=== PATIENT | female | born 1975 | race Caucasian/White ===

== ENCOUNTER → 2020-11-21 | Outpatient (CLI) | payer MEDICAID ==
[2020-11-21 11:25] LABS: Basophils # (A) 0.04 X 10*3/uL (0.00-0.10); Basophils % (A) 0.4 %; Eosinophils # (A) 0.09 X 10*3/uL (0.04-0.35); Eosinophils % (A) 0.8 %; HCT 38.6 % (37.2-46.3); HGB 13.2 g/dL (12.0-15.0); Lymphocytes # (A) 3.92 X 10*3/uL (0.90-5.00); Lymphocytes % (A) 35.8 %; MCH 31.2 pg (27.0-32.0); MCHC 34.2 g/dL (32.0-37.0); MCV 91.3 fL (80.0-97.0); Mean Platelet Volume 10.7 fL (9.5-12.2); Monocytes # (A) 0.79 X 10*3/uL (0.20-1.00); Monocytes % (A) 7.2 %; Neutrophils # (A) 6.07 X 10*3/uL (1.80-7.70); Neutrophils % (A) 55.3 %; Platelet Count 247 X 10*3/uL (140-440); RBC 4.23 X 10*6/uL (4.10-5.20); WBC 10.96 X 10*3/uL (4.50-10.00)
[2020-11-21 14:07] LABS: Chol/HDL Ratio 3.39; LDL Cholesterol,Calculated 126.4 mg/dL (0.0-131.0); VLDL Calculation 31.6 mg/dL (5.00-40.00)
[2020-11-21 14:14] LABS: T4, Free (Free Thyroxine) 1.2 ng/dL (0.80-1.80)
[2020-11-21 15:36] LABS: Follicle Stimulating Hormone 1.5 mIU/mL
== END | disposition home or self-care (01) ==
LOC: LABWHC1 07:05
PROVIDERS: ATTEND Obstetrics & Gynecology
DX: E78.2 Mixed hyperlipidemia (principal); D72.829 Elevated white blood cell count, unspecified; R58 Hemorrhage, not elsewhere classified
CPT/HCPCS: 36415; 80061; 83001; 84439; 84443; 85025

== ENCOUNTER → 2021-04-23 | Outpatient (CLI) | payer MEDICAID ==
[2021-04-23 16:27] LABS: Basophils # (A) 0.1 k/uL (0-0.2); Basophils % (A) 1 %; Eosinophils # (A) 0.1 k/uL (0-0.7); Eosinophils % (A) 1 %; HCT 36.4 % (34.0-46.0); HGB 14.5 gm/dL (11.4-16.0); Lymphocytes # (A) 4.9 k/uL (1.0-4.8); Lymphocytes % (A) 34 %; MCH 36.3 pg (25.0-35.0); Mean Platelet Volume 7.2; Monocytes # (A) 0.6 k/uL (0-1.0); Monocytes % (A) 4 %; Neutrophils # (A) 8.5 k/uL (1.3-7.7); Neutrophils % (A) 58 %; Platelet Count 328 k/uL (150-450); RDW 13.1 % (11.5-15.5); WBC 14.6 k/uL (3.8-10.6)
[2021-04-23 16:35] LABS: MCHC 39.8 g/dL (31.0-37.0)
== END | disposition home or self-care (01) ==
LOC: LABPAT 15:41
PROVIDERS: ATTEND Obstetrics & Gynecology
DX: Z01.818 Encounter for other preprocedural examination (principal); I10 Essential (primary) hypertension; N92.0 Excessive and frequent menstruation with regular cycle
CPT/HCPCS: 36415; 85025; 93005

== ENCOUNTER 2021-05-19 09:17 | Day surgery (SDC) | payer MEDICAID ==
[2021-05-12 11:28] VITALS: BMI 40.2
[~2021-05-19 09:17] MED LIST: DEXAMETHASONE SOD PHOSPHATE 4 MG/ML 1 ML VIAL IV ONE; HYDROmorphone 0.5 MG/0.5 ML SYRINGE IVP PRN; LACTATED RINGERS 1,000 ML IV SCH; LIDOCAINE 1% (10MG/ML) FOR IV START INTRADERMA PRN; ONDANSETRON 4 MG/2 ML VIAL IVP ONE; Pre Op ABX Message 1 EACH MISC MISCELLANE ONE; SCOPOLAMINE 1.5MG/72HR PATCH TRANSDERM ONE
[2021-05-19 09:31] VITALS: RESP 16
[2021-05-19] MEDS ORDERED: PROPOFOL 10 MG/ML 20 ML VIAL IV ONE (09:47)
[2021-05-19] MEDS ORDERED: MIDAZOLAM 2 MG/2 ML VIAL ONE (09:47)
[2021-05-19] MEDS ORDERED: fentaNYL (PF) 50 MCG/ML 2 ML AMP ONE (09:47)
[2021-05-19] MEDS ORDERED: LIDOCAINE 1% INJ 10MG/ML (20 ML MDV) ONE (09:47)
[2021-05-19] MEDS ORDERED: SUCCINYLCHOLINE CHLORIDE 100 MG/5 ML SYR IV ONE (09:47)
[2021-05-19] MEDS ORDERED: KETOROLAC 15 MG/ML 1 ML VIAL ONE (09:47)
--- NOTE | 2021-05-19 10:30 | P.OP ---
Date of Procedure: 05/19/21 Preoperative Diagnosis: Hypermenorrhea Postoperative Diagnosis: Same, normal-appearing endometrial cavity Procedure(s) Performed: Hysteroscopy, Thania endometrial ablation Anesthesia: CYRUSA Surgeon: Emilie Nugent Estimated Blood Loss (ml): 5 IV fluids (ml): 400 Urine output (ml): 20 Pathology: none sent Condition: stable Disposition: PACU Operative Findings: Essentially normal-appearing endometrial cavity Description of Procedure: Patient is brought to the operating suite and placed in the dorsal lithotomy position after general anesthetic is administered by the team without difficulty. The cervix, vagina, perineal bodies are all prepped and draped in usual sterile fashion. The appropriate timeout is performed to assure proper patient and procedural identification, urine hCG is negative. Examination under anesthesia reveals a small anteverted uterus, negative adnexa bilaterally. Bladder is drained for approximately 20 mL of clear yellow urine. Weighted speculum was placed into the vagina. Anterior lip of the cervix is grasped with a double-tooth tenaculum. Cervical length is 3 cm, endometrial sound to 9 cm. Cervix is gently and systematically dilated using Hanks dilators. Hysteroscope was introduced and the cavity is distended with sterile saline. Inspection of the cavity reveals a proliferative-type appearing tissue, no fibroids, polyps, defects, septa. Hysteroscope was removed. The Thania wand is then placed into the cavity and the cervical balloon is blown up. The machine is enabled us to proceed. The foot pedal was then tapped and 420 seconds the procedure is carried out. When the machine turns off the wand is reduced and removed. Hysteroscope is then placed, cavity is noted to be uniformly blanched. All instrumentation is removed from the vagina. Cervix is clean and dry. Toradol is given. Patient is brought back to the recovery room in very good condition with stable vital signs including blood pressure 137/79, pulse 61, 97% O2 saturation. All instrument and sponge counts are correct. Patient will follow-up with me in the office in 2 weeks. Postoperative instructions are reviewed proper patient and family members.
[2021-05-19 10:51] VITALS: TEMP 97.7
[2021-05-19] MEDS ORDERED: LACTATED RINGERS 1,000 ML IV ONE ×2 (10:57)
[2021-05-19 12:04] VITALS: BP 131/83; PULSE 72
[2021-05-19] MEDS ORDERED: ACETAMINOPHEN TAB 500 MG TAB ONE (12:18)
[2021-05-19] MEDS ORDERED: ACETAMINOPHEN TAB 500 MG TAB PO ONE (12:25)
== END 2021-05-19 12:41 | disposition home or self-care (01) ==
LOC: OR 09:17
PROVIDERS: ATTEND Obstetrics & Gynecology
DX: N92.0 Excessive and frequent menstruation with regular cycle (principal); I10 Essential (primary) hypertension; J45.909 Unspecified asthma, uncomplicated; G47.33 Obstructive sleep apnea (adult) (pediatric); G43.909 Migraine, unspecified, not intractable, without status migrainosus; F41.9 Anxiety disorder, unspecified; F32.A Depression, unspecified; K21.9 Gastro-esophageal reflux disease without esophagitis; R56.9 Unspecified convulsions; J98.4 Other disorders of lung; Z79.1 Long term (current) use of non-steroidal anti-inflammatories (NSAID); Z79.899 Other long term (current) drug therapy; Z88.1 Allergy status to other antibiotic agents; Z98.890 Other specified postprocedural states; Z80.3 Family history of malignant neoplasm of breast; Z80.49 Family history of malignant neoplasm of other genital organs
CPT/HCPCS: 81025; 58563; J2250; J1100; J2405; J2001; J3010; J1885; J0330; J2704; J1170; J1790

== ENCOUNTER 2023-03-22 18:30 | Emergency (ER) | payer MEDICAID ==
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
[2023-03-22 18:51] VITALS: RESP 18; TEMP 98.5
[2023-03-22] MEDS ORDERED: HYDROmorphone 1 MG/ML 1 ML SYRINGE IM STA (19:06)
[2023-03-22] MEDS ORDERED: KETOROLAC 15 MG/ML 1 ML VIAL IM STA (19:06)
[2023-03-22] MEDS ORDERED: ACET/COD 300 MG/30 MG STARTER PACK 6 TAB BTL PO STA (21:02)
--- NOTE | 2023-03-22 21:55 | XR ---
EXAMINATION TYPE: XR ankle complete RT DATE OF EXAM: 03/22/2023 6:58 PM CLINICAL INDICATION:Female, 47 years old with history of pain; [facility] COMPARISON: None TECHNIQUE: The right ankle is imaged in frontal, lateral and oblique projections. FINDINGS: Soft tissue swelling suggested about the ankle. Small bony densities suggested along the tips of the medial and lateral malleoli, appearance favors chronic. Ankle mortise is preserved. Talar dome appear s intact. Mild/moderate degenerative changes at the ankle joint. Small dorsal calcaneal spur. No defi nite acute fracture lucency or malalignment. IMPRESSION: Degenerative changes of the ankle, with small bony densities suggested at the lateral and medial mall eoli, likely chronic. Correlate for any point tenderness. Soft tissue swelling about the ankle.
--- NOTE | 2023-03-22 21:56 | XR ---
EXAMINATION TYPE: XR knee complete RT DATE OF EXAM: 03/22/2023 6:58 PM CLINICAL INDICATION:Female, 47 years old with history of pain; [facility] COMPARISON: None. TECHNIQUE: XR knee complete RT; examined in Frontal, lateral and oblique projections. FINDINGS: Osseous mineralization appears appropriate. There is mild/moderate tricompartment osteoarth ropathy, greatest in the medial and patellofemoral compartments. No acute fracture or dislocation is seen. No significant joint effusion suggested. IMPRESSION: 1. No acute fracture or dislocation. 2. Mild/moderate tricompartmental osteoarthritic changes.
[2023-03-22 22:38] VITALS: BP 121/78; PULSE 78
== END 2023-03-22 22:03 | disposition home or self-care (01) ==
LOC: EC 18:30
DX: S83.91XA Sprain of unspecified site of right knee, initial encounter (principal); S93.401A Sprain of unspecified ligament of right ankle, initial encounter; J45.909 Unspecified asthma, uncomplicated; I10 Essential (primary) hypertension; M06.9 Rheumatoid arthritis, unspecified; M17.11 Unilateral primary osteoarthritis, right knee; Z88.1 Allergy status to other antibiotic agents; Z79.899 Other long term (current) drug therapy; W01.0XXA Fall on same level from slipping, tripping and stumbling without subsequent striking against object, initial encounter
CPT/HCPCS: 73562; 73610; 99284; 96372 ×2; L4350; L1830; J1170; J1885

== ENCOUNTER → 2023-04-01 | Outpatient (CLI) | payer MEDICAID ==
--- NOTE | 2023-04-01 12:24 | MR ---
EXAMINATION TYPE: MR knee RT wo con DATE OF EXAM: 04/01/2023 COMPARISON: None HISTORY: Rt knee cap pain and swelling - pt fell on cement floor directly on her knee cap a week ago TECHNIQUE: Multiplanar, multisequence imaging of the right knee is performed without IV contrast. FINDINGS: MEDIAL MENISCUS: Anterior and posterior horns are intact without tear. LATERAL MENISCUS: Anterior and posterior horns are intact without tear. CRUCIATE LIGAMENTS: The anterior and posterior cruciate ligaments are intact and unremarkable. COLLATERAL LIGAMENTS: The medial collateral ligament and lateral collateral ligament complex are inta ct and unremarkable. EXTENSOR MECHANISM: Visualized quadriceps and patellar tendons are intact. EFFUSION: No significant suprapatellar joint effusion. POPLITEAL CYST: Popliteal cyst measuring 2.0 x 0.8 cm. TRICOMPARTMENT SPACES: Moderate degenerative narrowing patellofemoral joint space with early changes of chondromalacia patella. Mild narrowing medial tibiofemoral joint space. CARTILAGE: Mild thinning noted without defects seen. BONE MARROW SIGNAL: No focal abnormal marrow signal is appreciated. OTHER: No additional significant abnormality is appreciated. IMPRESSION: 1. Degenerative osteoarthritis. 2. Popliteal cyst measuring 2.0 x 0.8 cm.
== END | disposition home or self-care (01) ==
LOC: RADMRIMAIN 11:01
PROVIDERS: ATTEND Orthopaedic Surgery
DX: M17.11 Unilateral primary osteoarthritis, right knee (principal); M71.21 Synovial cyst of popliteal space [Baker], right knee

== ENCOUNTER → 2023-08-27 | Outpatient (CLI) | payer MEDICAID ==
[2023-08-27 14:43] LABS: ALT 51 U/L (8-44); AST 31 U/L (13-35); Albumin 4.1 g/dL (3.8-4.9); Albumin/Globulin Ratio 1.95 Ratio (1.60-3.17); Alkaline Phosphatase 58 U/L (41-126); BUN/Creat Ratio 22.83 Ratio (12.00-20.00); Blood Urea Nitrogen 13.7 mg/dL (9.0-27.0); Calcium 9.9 mg/dL (8.7-10.3); Carbon Dioxide 24.7 mmol/L (21.6-31.8); Chloride 103 mmol/L (96-109); Chol/HDL Ratio 6.04 Ratio; Globulin 2.1 g/dL (1.6-3.3); Glucose 112 mg/dL (70-110); LDL Cholesterol,Calculated 180.6 mg/dL (0.0-131.0); Sodium 137 mmol/L (135-145); Total Bilirubin 0.6 mg/dL (0.3-1.2); Total Protein 6.2 g/dL (6.2-8.2)
== END | disposition home or self-care (01) ==
LOC: LABWHC1 09:45
PROVIDERS: ATTEND Family Medicine
DX: E78.2 Mixed hyperlipidemia (principal); R73.03 Prediabetes
CPT/HCPCS: 36415; 80053; 80061; 83036

== ENCOUNTER → 2024-08-24 | Outpatient (CLI) | payer BC ==
[2024-08-24 15:12] LABS: Basophils # (A) 0.08 X 10*3/uL (0.00-0.10); Basophils % (A) 1.2 %; Eosinophils # (A) 0.15 X 10*3/uL (0.04-0.35); Eosinophils % (A) 2.3 %; HCT 45.3 % (37.2-46.3); HGB 15.2 g/dL (12.0-15.0); Lymphocytes # (A) 2.84 X 10*3/uL (0.90-5.00); Lymphocytes % (A) 44.1 %; MCH 29.5 pg (27.0-32.0); MCHC 33.6 g/dL (32.0-37.0); Mean Platelet Volume 11.5 FL (9.5-12.2); Monocytes # (A) 0.53 X 10*3/uL (0.20-1.00); Monocytes % (A) 8.2 %; NRBC Per 100 WBC 0 X 10*3/uL (0.00-0.01); Neutrophils # (A) 2.83 X 10*3/uL (1.80-7.70); Platelet Count 283 X 10*3/uL (140-440); RBC 5.15 X 10*6/uL (4.10-5.20); RDW 12.5 % (11.5-14.5); WBC 6.44 X 10*3/uL (4.50-10.00)
[2024-08-24 16:39] LABS: Blood Urea Nitrogen 12.9 mg/dL (9.0-27.0); Glucose 107 mg/dL (70-110)
[2024-08-24 16:40] LABS: ALT 35 U/L (8-44); AST 29 U/L (13-35); Albumin 4.2 g/dL (3.8-4.9); Albumin/Globulin Ratio 1.75 Ratio (1.60-3.17); Alkaline Phosphatase 80 U/L (41-126); Calcium 9.8 mg/dL (8.7-10.3); Carbon Dioxide 21.1 mmol/L (21.6-31.8); Chloride 104 mmol/L (96-109); Globulin 2.4 g/dL (1.6-3.3); LDL Cholesterol,Calculated 154.3 mg/dL (0.0-131.0); Sodium 138 mmol/L (135-145); Total Bilirubin 0.6 mg/dL (0.3-1.2); Total Protein 6.6 g/dL (6.2-8.2)
== END | disposition home or self-care (01) ==
LOC: LABWHC1 09:54
PROVIDERS: ATTEND Family Medicine
DX: I10 Essential (primary) hypertension (principal); E78.2 Mixed hyperlipidemia; R73.03 Prediabetes
CPT/HCPCS: 36415; 80053; 80061; 83036; 85025